=== PATIENT | female | born 1995 | race Caucasian/White ===

== ENCOUNTER 2016-03-26 17:03 | Emergency (ER) | payer BC ==
[2016-03-26 17:16] VITALS: BP 137/70
--- NOTE | 2016-03-26 17:29 | UC ---
Skin Complaint HPI - HPI Summary HPI Summary: complaint of rash that started 3 weeks ago 1 week after it started was given steroids which made the rash change into a dry rash 4 days ago last dose of prednisone rash has not improved rash started on her chest and stomach spread to her arms and back and the top of her legs itching is much worse during the night denies fever denies any new medications, soaps, lotions, foods contacts that she visited had scabies - History of Current Complaint Chief Complaint: [facility] Time Seen by Provider: 03/26/16 17:20 Stated Complaint: RASH Hx Last Menstrual Period: 03/07/16 - Allergy/Home Medications Allergies/Adverse Reactions: Allergies Allergy/AdvReac Type Severity Reaction Status Date / Time No Known Allergies Allergy Verified 03/26/16 17:08 Review of Systems Constitutional: Negative Skin: Rash Eyes: Negative ENT: Negative Respiratory: Negative Cardiovascular: Negative Gastrointestinal: Negative Genitourinary: Negative Motor: Negative Neurovascular: Negative Musculoskeletal: Negative Neurological: Negative Psychological: Negative All Other Systems Reviewed And Are Negative: Yes PMH/Surg Hx/FS Hx/Imm Hx Previously Healthy: Yes - Surgical History Surgical History: Yes Surgery Procedure, Year, and Place: TONSILLECTOMY - Family History Known Family History: Positive: Hypertension Negative: Cardiac Disease, Diabetes - Social History Occupation: Student Lives: With Family Alcohol Use: Occasionally Substance Use Type: None Smoking Status (MU): Never Smoked Tobacco Physical Exam Triage Information Reviewed: Yes Appearance: No Pain Distress, Well-Nourished Vital Signs: Initial Vital Signs Temp 97.9 F 03/26/16 17:09 Pulse 76 03/26/16 17:09 Resp 18 03/26/16 17:09 BP 137/70 03/26/16 17:09 Pulse Ox 100 03/26/16 17:09 Vital Signs Reviewed: Yes Eyes: Positive: Conjunctiva Clear ENT: Positive: Normal ENT inspection Neck: Positive: No Lymphadenopathy Respiratory: Positive: Lungs clear, Normal breath sounds, No respiratory distress Cardiovascular: Positive: RRR, No Murmur, Pulses Normal Abdomen Description: Positive: Nontender, Soft Bowel Sounds: Positive: Present Musculoskeletal: Positive: No Edema Neurological: Positive: Alert Psychological Exam: Normal Skin: Positive: Other - rash- behind her knees and inside of arms linear areas of raised erythematous rash some tunneling torso - scattered raised erythematous papules neck flat areas of erythema Course/Dx - Course Course Of Treatment: exam completed. some areas of rash appear to be scabies behind knees, arms , back of legs. some areas appear to be contact dermatitis but prednisone was not effective. will treat for scabies and send to dermatology if symptoms do not improve - Differential Diagnoses - Skin Complaint Differential Diagnoses: Allergic Reaction, Contact Dermatitis, Eczema, Scabies - Diagnoses Provider Diagnoses: scabies Discharge - Discharge Plan Condition: Stable Disposition: HOME Prescriptions: Permethrin 5% CREAM* 1 applic TOPICAL SEE INSTRUCTIONS #1 tube Patient Education Materials: Scabies (ED), Contact Dermatitis (ED) Referrals: Non Staff,Doctor [Primary Care Provider] - Ji BENSON,Jignesh Vallejo [Medical Doctor] - Additional Instructions: apply cream from the neck down and sleep with medication on wash all medications off in the morning wash all linens and clothing in hot water continue to take 25 mg PO benadryl three times a day for the next 3 days followup with dermatology or return to urgent care if no improvement
== END 2016-03-26 17:47 | disposition home or self-care (01) ==
LOC: UCCORT 17:03
DX: B86 Scabies (principal)
CPT/HCPCS: 99212; G0463